=== PATIENT | male | born 1940 | race Caucasian/White ===

== ENCOUNTER 2023-12-28 10:36 | Inpatient (IN) | payer OTHER, MEDICARE ==
[~2023-12-28] VITALS: Ht 185.4 cm; Wt 77.2 kg
[2023-12-28] VITALS (17 sets, daily range): BP systolic 92–123; BP diastolic 47–73; PULSE 79–98; RESP 14–23; TEMP 96.3–97.3; O2SAT 98–100
[2023-12-28] MEDS: normal saline 1000ml 1,000 ML IVB ONE ×3 (11:07→11:08)
[2023-12-28 11:08] LABS: BASOPHILS % (AUTO) 0.2 % (0-1); EOSINOPHILS % (AUTO) 0 % (0-6); HEMATOCRIT 17.9 % (42.0-52.0); LYMPHOCYTES # (AUTO) 0.2 X10'3 (1.1-4.8); LYMPHOCYTES % (AUTO) 1.7 % (21-51); MEAN CORPUSCULAR HEMOGLOBIN 29.3 PG (27.0-31.0); MEAN CORPUSCULAR HGB CONC 31.1 g/dL (33.0-36.5); MEAN CORPUSCULAR VOLUME 94.1 FL (78-98); MEAN PLATELET VOLUME 6.5 FL (7.4-10.4); MONOCYTES # (AUTO) 0.6 X10'3 (0-0.9); MONOCYTES % (AUTO) 4.1 % (2-12); NEUTROPHILS # (AUTO) 13.8 X10'3 (1.8-7.7); PLATELET COUNT 339 X10'3 (140-440); RED CELL DISTRIBUTION WIDTH 16.9 % (11.5-14.5); WHITE BLOOD COUNT 14.7 X10'3 (4.5-11.0)
[2023-12-28] MEDS: LidoCAINE 2% Topical Jelly 11mL syringe (UROJET) TOP ONE ×2 (11:09→15:50)
[2023-12-28 11:10] LABS: HEMOGLOBIN 5.6 g/dl (14.0-17.9)
[2023-12-28 11:26] LABS: ALBUMIN 2.4 G/DL (3.4-5.0); ANION GAP 10 (8-16); BLOOD UREA NITROGEN 32 MG/DL (7-18); BUN/CREATININE RATIO 14.8 (10.0-20.0); CALCIUM 8.1 MG/DL (8.5-10.1); CHLORIDE 106 MMOL/L (99-107); CREATININE 2.16 MG/DL (0.60-1.10); GLUCOSE 103 MG/DL (70-104); LIPASE 23 U/L (16-77); MAGNESIUM 1.8 MG/DL (1.5-2.4); POTASSIUM 4.4 MMOL/L (3.5-5.1); SODIUM 138 MMOL/L (135-145); TOTAL CARBON DIOXIDE 22.3 MMOL/L (24-32); eCRCL 29 ML/MIN; eGFR 29 ML/MIN
[2023-12-28 11:32] LABS: ABG BASE EXCESS -7.5 mmol/L (-2.0-3.0); ABG HCO3 16.2 mmol/L (21.0-28.0); ABG OXYGEN SATURATION 99.7 % (94.0-98.0); ABG PCO2 (T) 23.4 mmHg (35.0-48.0); ABG PH (T) 7.452 (7.350-7.450); ABG PO2 (T) 365.5 mmHg (83.0-108.0); ALLEN'S TEST POSITIVE; FCOHb 0.9 % (0.5-1.5); FHHb 0.3 % (0.0-5.0); FLOW 15 L/min; FMetHb 0.1 % (0.0-1.5); FO2Hb 98.7 % (94.0-98.0); MODE MASK - NRB; PATIENT TEMPERATURE 35.6; TOTAL HEMOGLOBIN 5.3 G/dl (13.5-17.5)
[2023-12-28 11:43] LABS: BILIRUBIN,URINE SMALL (Neg); CLARITY,URINE CLOUDY (Clear); COLOR,URINE YELLOW (Yellow); GLUCOSE, URINE NEGATIVE (Neg); KETONES,URINE NEGATIVE (Neg); LEUKOCYTE ESTERASE ,URINE SMALL (Neg); NITRITES, URINE NEGATIVE (Neg); OCCULT BLOOD,URINE SMALL (Neg); PH,URINE 6.5 (4.8-8.0); PROTEIN,URINE 100 mg/dl (Neg); UROBILINOGEN,URINE 0.2 E.U/dL (0.2-1.0)
[2023-12-28 11:45] LABS: ANISOCYTOSIS 1+; PLATELET ESTIMATE NORMAL; TOTAL CELLS COUNTED 100
[2023-12-28 11:47] LABS: UA COLLECTION TYPE FOLEY CATH
[2023-12-28 11:49] LABS: POLYCHROMASIA FEW; SMUDGE CELLS FEW
[2023-12-28 11:50] LABS: SCHISTOCYTES FEW
[2023-12-28 11:51] LABS: BURR CELLS 1+; ELLIPTOCYTES 1+
[2023-12-28] MEDS: CefTRIAXone/D5W-Rocephin 1gm 50 ML IV ONE ×2 (11:56→16:05)
[2023-12-28 11:57] LABS: BACTERIA,URINE 2+ /HPF (Neg); MUCUS STRANDS NONE SEEN /LPF (Neg); RENAL CELLS, URINE FEW /HPF; SQUAMOUS EPITHELIAL CELL,UR NONE SEEN /LPF (FEW); WBC CLUMPS,URINE MODERATE /HPF (NEGATIVE); WBC,URINE TNTC /HPF (0-4)
[2023-12-28] MEDS: LIDOcaine 1% W/epiNEPHrine 1:100,000 20ml vial SQ ONE ×2 (11:57→12:29)
[2023-12-28 12:02] LABS: URINE AMPHETAMINE SCREEN NEGATIVE (Neg); URINE BARBITUATE SCREEN NEGATIVE (Neg); URINE BENZODIAZEPINES SCREEN POSITIVE (Neg); URINE CANNABINOID SCREEN NEGATIVE (Neg); URINE COCAINE SCREEN NEGATIVE (Neg); URINE METHADONE SCREEN NEGATIVE (Neg); URINE OPIATE SCREEN NEGATIVE (Neg); URINE PHENCYCLIDINE SCREEN NEGATIVE (Neg)
[2023-12-28] MEDS: NORepinephrine 8mg/ 250ml NS 250 ML IV ONE (12:48)
[2023-12-28] MEDS ORDERED: magnesium hydroxide 30ml (MOM) UD suspension PO PRN (15:50)
[2023-12-28] MEDS ORDERED: acetaminophen 325mg tablet PO PRN (15:50)
[2023-12-28] MEDS: ringers solution, lacted 1,000 ML IV ONE ×2 (15:54→16:00)
[2023-12-28] MEDS ORDERED: PANT40TA54 PO (15:58)
[2023-12-28] MEDS ORDERED: SPIR25TA5 PO (15:58)
[2023-12-28] MEDS ORDERED: SENN-367 PO (15:58)
[2023-12-28] MEDS ORDERED: ALPR0.5T8 PO (15:58)
[2023-12-28] MEDS ORDERED: DULO30CA52 PO (15:58)
[2023-12-28] MEDS: ringers solution, lacted 1,000 ML IV SCH (17:12)
[2023-12-28] MEDS: albumin (human) 25% 100ml IV 400 ML IV ONE (17:13)
[2023-12-28] MEDS: albumin (Human) 5% 250ml 250 ML IV SCH (17:22)
[2023-12-28] MEDS: diatr meglu/diatrizoate 30ml oral sol.-(3 dose) bottle PO ONE ×3 (17:35→21:21)
[2023-12-28 17:39] LABS: BASOPHILS % (AUTO) 0.2 % (0-1); EOSINOPHILS % (AUTO) 0 % (0-6); HEMATOCRIT 26.3 % (42.0-52.0); HEMOGLOBIN 8.3 g/dl (14.0-17.9); LYMPHOCYTES # (AUTO) 0.3 X10'3 (1.1-4.8); LYMPHOCYTES % (AUTO) 1.1 % (21-51); MEAN CORPUSCULAR HGB CONC 31.4 g/dL (33.0-36.5); MEAN CORPUSCULAR VOLUME 92.1 FL (78-98); MEAN PLATELET VOLUME 6.5 FL (7.4-10.4); MONOCYTES # (AUTO) 0.6 X10'3 (0-0.9); MONOCYTES % (AUTO) 2.4 % (2-12); NEUTROPHILS # (AUTO) 23.4 X10'3 (1.8-7.7); NEUTROPHILS % (AUTO) 96.3 % (42-75); PLATELET COUNT 379 X10'3 (140-440); RED BLOOD COUNT 2.85 X10'6 (4.70-6.10); RED CELL DISTRIBUTION WIDTH 16.9 % (11.5-14.5); WHITE BLOOD COUNT 24.3 X10'3 (4.5-11.0)
[2023-12-28] MEDS: acetaminophen 325mg tablet PO PRN (20:01)
[2023-12-28] MEDS: NORepinephrine 8mg/ 250ml NS 250 ML IV SCH (23:38)
[2023-12-29] VITALS (59 sets, daily range): BP systolic 94–124; BP diastolic 44–66; PULSE 78–97; RESP 9–24; O2SAT 92–99
[2023-12-29] MEDS: morphine 4 MG/ML inj SYRINge IV PRN (00:19)
[2023-12-29 01:52] LABS: HEMATOCRIT 25.1 % (42.0-52.0); MEAN CORPUSCULAR HEMOGLOBIN 29.3 PG (27.0-31.0); MEAN CORPUSCULAR HGB CONC 31.7 g/dL (33.0-36.5); MEAN CORPUSCULAR VOLUME 92.4 FL (78-98); MEAN PLATELET VOLUME 6.5 FL (7.4-10.4); PLATELET COUNT 336 X10'3 (140-440); RED BLOOD COUNT 2.72 X10'6 (4.70-6.10); RED CELL DISTRIBUTION WIDTH 17.3 % (11.5-14.5)
[2023-12-29 01:57] LABS: WHITE BLOOD COUNT 25.9 X10'3 (4.5-11.0)
[2023-12-29 02:01] LABS: ALANINE AMINOTRANSFERASE 97 U/L (12-78); ALBUMIN 2.6 G/DL (3.4-5.0); ALBUMIN/GLOBULIN RATIO 1.1 (1.1-1.5); ALKALINE PHOSPHATASE 86 IU/L (46-116); ANION GAP 6 (8-16); ASPARTATE AMINO TRANSFERASE 66 U/L (10-37); BILIRUBIN,TOTAL 0.5 MG/DL (0.1-1.0); BLOOD UREA NITROGEN 28 MG/DL (7-18); BUN/CREATININE RATIO 20.4 (10.0-20.0); CALCIUM 7.4 MG/DL (8.5-10.1); CHLORIDE 111 MMOL/L (99-107); CREATININE 1.37 MG/DL (0.60-1.10); GLUCOSE 88 MG/DL (70-104); MAGNESIUM 1.9 MG/DL (1.5-2.4); PHOSPHORUS 3.7 MG/DL (2.3-4.5); POTASSIUM 4.4 MMOL/L (3.5-5.1); SODIUM 141 MMOL/L (135-145); TOTAL CARBON DIOXIDE 23.9 MMOL/L (24-32); TOTAL PROTEIN 4.9 G/DL (6.4-8.2); eCRCL 46 ML/MIN; eGFR 50 ML/MIN
[2023-12-29] MEDS: CefTRIAXone/D5W-Rocephin 1gm 50 ML IV SCH (07:42)
[2023-12-29] MEDS: pantoprazole 40MG/NS 100ML BAG 100 ML IV SCH (07:45)
[2023-12-29 09:18] LABS: BASOPHILS % (AUTO) 0.1 % (0-1); EOSINOPHILS % (AUTO) 0.2 % (0-6); HEMATOCRIT 25.5 % (42.0-52.0); LYMPHOCYTES # (AUTO) 0.4 X10'3 (1.1-4.8); LYMPHOCYTES % (AUTO) 1.7 % (21-51); MEAN CORPUSCULAR HEMOGLOBIN 29.2 PG (27.0-31.0); MEAN CORPUSCULAR HGB CONC 31.6 g/dL (33.0-36.5); MEAN CORPUSCULAR VOLUME 92.6 FL (78-98); MEAN PLATELET VOLUME 6.5 FL (7.4-10.4); MONOCYTES # (AUTO) 0.7 X10'3 (0-0.9); MONOCYTES % (AUTO) 3.1 % (2-12); NEUTROPHILS # (AUTO) 21.4 X10'3 (1.8-7.7); NEUTROPHILS % (AUTO) 94.9 % (42-75); PLATELET COUNT 328 X10'3 (140-440); RED BLOOD COUNT 2.75 X10'6 (4.70-6.10); RED CELL DISTRIBUTION WIDTH 17.4 % (11.5-14.5); WHITE BLOOD COUNT 22.6 X10'3 (4.5-11.0)
[2023-12-29 09:36] LABS: ALBUMIN 2.7 G/DL (3.4-5.0); ANION GAP 6 (8-16); BLOOD UREA NITROGEN 26 MG/DL (7-18); BUN/CREATININE RATIO 22.6 (10.0-20.0); CALCIUM 7.6 MG/DL (8.5-10.1); CHLORIDE 112 MMOL/L (99-107); CREATININE 1.15 MG/DL (0.60-1.10); GLUCOSE 91 MG/DL (70-104); POTASSIUM 4.6 MMOL/L (3.5-5.1); SODIUM 139 MMOL/L (135-145); TOTAL CARBON DIOXIDE 21.4 MMOL/L (24-32); eCRCL 54 ML/MIN; eGFR 61 ML/MIN
[2023-12-29] MEDS: azithromycin/NS 500mg/250ml 250 ML IV SCH (09:47)
[2023-12-29] MEDS: ondansetron/PF 4mg/2ml inj IV PRN (10:08)
[2023-12-29 13:44] LABS: HEMOGLOBIN 7.8 g/dl (14.0-17.9); MEAN CORPUSCULAR HEMOGLOBIN 28.9 PG (27.0-31.0); MEAN CORPUSCULAR HGB CONC 31.2 g/dL (33.0-36.5); MEAN CORPUSCULAR VOLUME 92.7 FL (78-98); MEAN PLATELET VOLUME 6.6 FL (7.4-10.4); PLATELET COUNT 300 X10'3 (140-440); RED CELL DISTRIBUTION WIDTH 17.9 % (11.5-14.5); WHITE BLOOD COUNT 19.1 X10'3 (4.5-11.0)
[2023-12-29] MEDS: ringers solution, lacted 1,000 ML IV ONE (14:20)
[2023-12-29 18:07] LABS: HEMATOCRIT 23.8 % (42.0-52.0); HEMOGLOBIN 7.5 g/dl (14.0-17.9); MEAN CORPUSCULAR HEMOGLOBIN 29.2 PG (27.0-31.0); MEAN CORPUSCULAR HGB CONC 31.6 g/dL (33.0-36.5); MEAN CORPUSCULAR VOLUME 92.4 FL (78-98); MEAN PLATELET VOLUME 6.4 FL (7.4-10.4); PLATELET COUNT 268 X10'3 (140-440); RED BLOOD COUNT 2.57 X10'6 (4.70-6.10); RED CELL DISTRIBUTION WIDTH 17.4 % (11.5-14.5); WHITE BLOOD COUNT 17.3 X10'3 (4.5-11.0)
[2023-12-29] MEDS: dextrose 50%-water 50ml dispensing syringe IV PRN (21:00)
[2023-12-29] MEDS ORDERED: DEXTROSE 15 GM of carb/4 tabs (each vial/BOTTLE has 4 tablets) PO PRN ×2 (21:25)
[2023-12-29] MEDS ORDERED: glucagon, human recombinant 1mg kit SUBCUT PRN (21:25)
[2023-12-29] MEDS ORDERED: dextrose 50%-water 50ml dispensing syringe IV PRN (21:25)
[2023-12-29] MEDS: dextrose 50%-water 50ml dispensing syringe IV ONE (21:41)
[2023-12-29] MEDS: dextrose 5%-1/2 normal saline 1,000 ML IV SCH (21:41)
[2023-12-30] VITALS (24 sets, daily range): BP systolic 105–139; BP diastolic 52–79; PULSE 74–88; RESP 9–19; O2SAT 92–98
[2023-12-30 01:58] LABS: HEMATOCRIT 24.2 % (42.0-52.0); HEMOGLOBIN 7.6 g/dl (14.0-17.9); MEAN CORPUSCULAR HEMOGLOBIN 28.8 PG (27.0-31.0); MEAN CORPUSCULAR HGB CONC 31.6 g/dL (33.0-36.5); MEAN CORPUSCULAR VOLUME 91.3 FL (78-98); MEAN PLATELET VOLUME 6.7 FL (7.4-10.4); PLATELET COUNT 266 X10'3 (140-440); RED BLOOD COUNT 2.65 X10'6 (4.70-6.10); RED CELL DISTRIBUTION WIDTH 17.8 % (11.5-14.5); WHITE BLOOD COUNT 16.6 X10'3 (4.5-11.0)
[2023-12-30 02:06] LABS: APTT 40 SECONDS (22-32); INR 1.3 INR; PROTHROMBIN TIME 13.3 SECONDS (9.0-12.0)
[2023-12-30 02:08] LABS: ALANINE AMINOTRANSFERASE 52 U/L (12-78); ALBUMIN 2.7 G/DL (3.4-5.0); ALBUMIN/GLOBULIN RATIO 1.3 (1.1-1.5); ALKALINE PHOSPHATASE 67 IU/L (46-116); ANION GAP 5 (8-16); ASPARTATE AMINO TRANSFERASE 33 U/L (10-37); BILIRUBIN,TOTAL 0.4 MG/DL (0.1-1.0); BLOOD UREA NITROGEN 21 MG/DL (7-18); BUN/CREATININE RATIO 20.6 (10.0-20.0); CALCIUM 7.7 MG/DL (8.5-10.1); CHLORIDE 112 MMOL/L (99-107); CREATININE 1.02 MG/DL (0.60-1.10); GLUCOSE 92 MG/DL (70-104); POTASSIUM 4.3 MMOL/L (3.5-5.1); SODIUM 140 MMOL/L (135-145); TOTAL CARBON DIOXIDE 23.2 MMOL/L (24-32); TOTAL PROTEIN 4.8 G/DL (6.4-8.2); eCRCL 61 ML/MIN; eGFR 70 ML/MIN
[2023-12-30 02:10] LABS: TOTAL IRON BINDING CAPACITY 129 UG/DL (259-388)
[2023-12-30 02:13] LABS: % IRON SATURATION 3 % (11-46); IRON 4 UG/DL (53-167)
[2023-12-30] MEDS ORDERED: potassium Cl 40MEQ/270ML bag 270 ML IV PRN (07:40)
[2023-12-30] MEDS ORDERED: magnesium sulf-water 2g/50mL 50 ML IV PRN (07:40)
[2023-12-30] MEDS ORDERED: potassium Cl 20 mEq SR tablet PO PRN ×2 (07:40)
[2023-12-30] MEDS ORDERED: magnesium sulf-water 4G/100mL 100 ML IV PRN (07:40)
[2023-12-30] MEDS ORDERED: sodium phosphate inj. 30 MMOL in dextrose 5%-water 250 ML IV PRN (07:40)
[2023-12-30 07:50] LABS: HEMATOCRIT 25.4 % (42.0-52.0); MEAN CORPUSCULAR HEMOGLOBIN 29.4 PG (27.0-31.0); MEAN CORPUSCULAR HGB CONC 31.6 g/dL (33.0-36.5); MEAN CORPUSCULAR VOLUME 92.9 FL (78-98); MEAN PLATELET VOLUME 7.1 FL (7.4-10.4); PLATELET COUNT 276 X10'3 (140-440); RED BLOOD COUNT 2.73 X10'6 (4.70-6.10); RED CELL DISTRIBUTION WIDTH 17.9 % (11.5-14.5); WHITE BLOOD COUNT 17.8 X10'3 (4.5-11.0)
[2023-12-30] MEDS: K and/or MAG REPLACEMENT MC SCH (07:53)
[2023-12-30] MEDS: sodium phosphate inj. 15 MMOL in dextrose 5%-water 250 ML IV PRN (08:28)
[2023-12-30] MEDS: MULTIVIT-MIN/FERROUS GLUCONATE 9 MG/15 ML LIQUID PO SCH (11:29)
[2023-12-30 12:19] LABS: HEMATOCRIT 25.5 % (42.0-52.0); HEMOGLOBIN 8.2 g/dl (14.0-17.9); MEAN CORPUSCULAR HEMOGLOBIN 29.8 PG (27.0-31.0); MEAN CORPUSCULAR HGB CONC 32.2 g/dL (33.0-36.5); MEAN CORPUSCULAR VOLUME 92.6 FL (78-98); MEAN PLATELET VOLUME 6.9 FL (7.4-10.4); PLATELET COUNT 249 X10'3 (140-440); RED BLOOD COUNT 2.75 X10'6 (4.70-6.10); RED CELL DISTRIBUTION WIDTH 17.9 % (11.5-14.5); WHITE BLOOD COUNT 18.2 X10'3 (4.5-11.0)
[2023-12-30] MEDS: piperacillin/tazo 4.5gm/100ml 100 ML IV SCH (13:45)
[2023-12-30] MEDS: PEG 3350/Na sulf,bicarb,Cl/KCl oral sol 4 liter bottle PO ONE (15:39)
[2023-12-31] VITALS (20 sets, daily range): BP systolic 111–155; BP diastolic 48–86; PULSE 66–84; RESP 11–20; TEMP 97.6; O2SAT 94–99
[2023-12-31 00:42] LABS: HEMATOCRIT 23.4 % (42.0-52.0); HEMOGLOBIN 7.4 g/dl (14.0-17.9); MEAN CORPUSCULAR HEMOGLOBIN 28.8 PG (27.0-31.0); MEAN CORPUSCULAR HGB CONC 31.6 g/dL (33.0-36.5); MEAN PLATELET VOLUME 6.8 FL (7.4-10.4); PLATELET COUNT 215 X10'3 (140-440); RED BLOOD COUNT 2.57 X10'6 (4.70-6.10); WHITE BLOOD COUNT 12.8 X10'3 (4.5-11.0)
[2023-12-31 01:13] LABS: ALANINE AMINOTRANSFERASE 33 U/L (12-78); ALBUMIN 2.9 G/DL (3.4-5.0); ALBUMIN/GLOBULIN RATIO 1.6 (1.1-1.5); ALKALINE PHOSPHATASE 51 IU/L (46-116); ANION GAP 7 (8-16); ASPARTATE AMINO TRANSFERASE 12 U/L (10-37); BILIRUBIN,TOTAL 0.4 MG/DL (0.1-1.0); BLOOD UREA NITROGEN 13 MG/DL (7-18); BUN/CREATININE RATIO 15.5 (10.0-20.0); CALCIUM 7.6 MG/DL (8.5-10.1); CHLORIDE 109 MMOL/L (99-107); CREATININE 0.84 MG/DL (0.60-1.10); GLUCOSE 113 MG/DL (70-104); MAGNESIUM 1.7 MG/DL (1.5-2.4); PHOSPHORUS 2.1 MG/DL (2.3-4.5); POTASSIUM 3.7 MMOL/L (3.5-5.1); SODIUM 140 MMOL/L (135-145); TOTAL CARBON DIOXIDE 23.9 MMOL/L (24-32); TOTAL PROTEIN 4.7 G/DL (6.4-8.2); eCRCL 74 ML/MIN; eGFR 87 ML/MIN
[2023-12-31 05:37] LABS: HEMATOCRIT 23.1 % (42.0-52.0); HEMOGLOBIN 7.3 g/dl (14.0-17.9); MEAN CORPUSCULAR HGB CONC 31.8 g/dL (33.0-36.5); MEAN CORPUSCULAR VOLUME 91.2 FL (78-98); MEAN PLATELET VOLUME 6.9 FL (7.4-10.4); PLATELET COUNT 206 X10'3 (140-440); RED BLOOD COUNT 2.53 X10'6 (4.70-6.10); RED CELL DISTRIBUTION WIDTH 17.8 % (11.5-14.5)
[2023-12-31] MEDS ORDERED: iohexol 350MG/ML 100ml bottle IV ONE (14:29)
[2023-12-31] MEDS: PEG 3350/Na sulf,bicarb,Cl/KCl oral sol 4 liter bottle PO ONE (20:53)
[2024-01-01] VITALS (16 sets, daily range): BP systolic 115–148; BP diastolic 60–84; PULSE 71–87; RESP 15–25; TEMP 97.5–98.2; O2SAT 92–98
[2024-01-01 08:00] LABS: ALANINE AMINOTRANSFERASE 35 U/L (12-78); ALBUMIN 2.9 G/DL (3.4-5.0); ALBUMIN/GLOBULIN RATIO 1.3 (1.1-1.5); ALKALINE PHOSPHATASE 99 IU/L (46-116); ANION GAP 6 (8-16); ASPARTATE AMINO TRANSFERASE 16 U/L (10-37); BILIRUBIN,TOTAL 0.6 MG/DL (0.1-1.0); BLOOD UREA NITROGEN 7 MG/DL (7-18); CALCIUM 8.1 MG/DL (8.5-10.1); CHLORIDE 111 MMOL/L (99-107); CREATININE 0.87 MG/DL (0.60-1.10); GLUCOSE 96 MG/DL (70-104); MAGNESIUM 1.7 MG/DL (1.5-2.4); POTASSIUM 3.4 MMOL/L (3.5-5.1); SODIUM 143 MMOL/L (135-145); TOTAL CARBON DIOXIDE 26.1 MMOL/L (24-32); TOTAL PROTEIN 5.2 G/DL (6.4-8.2); eCRCL 71 ML/MIN; eGFR 84 ML/MIN
[2024-01-01] MEDS: furosemide 10 MG/1 ML 10ml inj IV ONE (12:55)
[2024-01-01] MEDS ORDERED: POTASSIUM BICARB 20meq eff tab 20 MEQ TABLET.EFF PO PRN (16:26)
[2024-01-01] MEDS ORDERED: MIDAZolam 1 MG/ML 5ML VIAL ONE (17:45)
[2024-01-01] MEDS ORDERED: fentaNYL/PF 50MCG/1 ML 2ML syringe ONE (17:45)
[2024-01-01] MEDS: lactose-reduced food (Ensure Enlive) - 237ml bottle PO SCH (18:52)
[2024-01-01] MEDS ORDERED: furosemide 40mg/4ml inj IV SCH (20:00)
[2024-01-01] MEDS: pantoprazole 40MG/NS 100ML BAG 100 ML IV SCH (21:08)
[2024-01-01] MEDS: Neutra Phos packet PO PRN (21:11)
[2024-01-01] MEDS: POTASSIUM BICARB 20meq eff tab 20 MEQ TABLET.EFF PO PRN (21:12)
[2024-01-02] VITALS (10 sets, daily range): BP systolic 119–150; BP diastolic 51–105; PULSE 61–84; RESP 12–21; TEMP 97.8–98.4; O2SAT 89–98
[2024-01-02] MEDS: furosemide 40mg/4ml inj IV SCH (08:00)
[2024-01-02 08:05] LABS: ALANINE AMINOTRANSFERASE 28 U/L (12-78); ALBUMIN 2.6 G/DL (3.4-5.0); ALBUMIN/GLOBULIN RATIO 1.2 (1.1-1.5); ALKALINE PHOSPHATASE 82 IU/L (46-116); ANION GAP 6 (8-16); ASPARTATE AMINO TRANSFERASE 13 U/L (10-37); BILIRUBIN,TOTAL 0.4 MG/DL (0.1-1.0); BLOOD UREA NITROGEN 7 MG/DL (7-18); BUN/CREATININE RATIO 8.3 (10.0-20.0); CALCIUM 8.1 MG/DL (8.5-10.1); CHLORIDE 110 MMOL/L (99-107); CREATININE 0.84 MG/DL (0.60-1.10); GLUCOSE 85 MG/DL (70-104); MAGNESIUM 1.7 MG/DL (1.5-2.4); POTASSIUM 3.4 MMOL/L (3.5-5.1); SODIUM 142 MMOL/L (135-145); TOTAL CARBON DIOXIDE 25.6 MMOL/L (24-32); TOTAL PROTEIN 4.7 G/DL (6.4-8.2); eCRCL 74 ML/MIN; eGFR 87 ML/MIN
[2024-01-02 08:31] LABS: BASOPHILS # (AUTO) 0.1 X10'3 (0-0.2); BASOPHILS % (AUTO) 0.8 % (0-1); EOSINOPHILS # (AUTO) 0.3 X10'3 (0-0.9); EOSINOPHILS % (AUTO) 4.5 % (0-6); HEMATOCRIT 26.9 % (42.0-52.0); HEMOGLOBIN 8.7 g/dl (14.0-17.9); LYMPHOCYTES # (AUTO) 0.5 X10'3 (1.1-4.8); LYMPHOCYTES % (AUTO) 7.5 % (21-51); MEAN CORPUSCULAR HGB CONC 32.5 g/dL (33.0-36.5); MEAN CORPUSCULAR VOLUME 89.2 FL (78-98); MEAN PLATELET VOLUME 7.3 FL (7.4-10.4); MONOCYTES # (AUTO) 0.5 X10'3 (0-0.9); MONOCYTES % (AUTO) 7.7 % (2-12); NEUTROPHILS # (AUTO) 5.5 X10'3 (1.8-7.7); NEUTROPHILS % (AUTO) 79.5 % (42-75); PLATELET COUNT 208 X10'3 (140-440); RED BLOOD COUNT 3.01 X10'6 (4.70-6.10); RED CELL DISTRIBUTION WIDTH 17.5 % (11.5-14.5); WHITE BLOOD COUNT 6.9 X10'3 (4.5-11.0)
[2024-01-02 08:57] LABS: PRO BRAIN NATRIURETIC PEPTIDE 7275 PG/ML (0-450)
[2024-01-02] MEDS ORDERED: potassium Cl 20 mEq SR tablet PO PRN (16:23)
[2024-01-02] MEDS: potassium Cl 20 mEq SR tablet PO PRN (16:49)
[2024-01-03] VITALS (7 sets, daily range): BP systolic 107–137; BP diastolic 63–78; PULSE 72–92; RESP 12–22; TEMP 97.6–99; O2SAT 95–99
[2024-01-03] MEDS: potassium Cl 40MEQ/1/2NS 520ml 520 ML IV PRN (02:58)
[2024-01-03 03:35] LABS: BASOPHILS # (AUTO) 0.1 X10'3 (0-0.2); BASOPHILS % (AUTO) 0.9 % (0-1); EOSINOPHILS # (AUTO) 0.3 X10'3 (0-0.9); EOSINOPHILS % (AUTO) 4.2 % (0-6); HEMATOCRIT 24.7 % (42.0-52.0); HEMOGLOBIN 8.1 g/dl (14.0-17.9); LYMPHOCYTES # (AUTO) 0.6 X10'3 (1.1-4.8); LYMPHOCYTES % (AUTO) 9.2 % (21-51); MEAN CORPUSCULAR HEMOGLOBIN 29.2 PG (27.0-31.0); MEAN CORPUSCULAR HGB CONC 32.9 g/dL (33.0-36.5); MEAN CORPUSCULAR VOLUME 88.8 FL (78-98); MEAN PLATELET VOLUME 7.6 FL (7.4-10.4); MONOCYTES # (AUTO) 0.5 X10'3 (0-0.9); MONOCYTES % (AUTO) 7.4 % (2-12); NEUTROPHILS # (AUTO) 5.1 X10'3 (1.8-7.7); NEUTROPHILS % (AUTO) 78.3 % (42-75); PLATELET COUNT 213 X10'3 (140-440); RED BLOOD COUNT 2.78 X10'6 (4.70-6.10); RED CELL DISTRIBUTION WIDTH 17.5 % (11.5-14.5); WHITE BLOOD COUNT 6.5 X10'3 (4.5-11.0)
[2024-01-03 03:39] LABS: ALANINE AMINOTRANSFERASE 23 U/L (12-78); ALBUMIN 2.6 G/DL (3.4-5.0); ALBUMIN/GLOBULIN RATIO 1.2 (1.1-1.5); ALKALINE PHOSPHATASE 71 IU/L (46-116); ANION GAP 4 (8-16); ASPARTATE AMINO TRANSFERASE 14 U/L (10-37); BILIRUBIN,TOTAL 0.4 MG/DL (0.1-1.0); BLOOD UREA NITROGEN 14 MG/DL (7-18); BUN/CREATININE RATIO 14.9 (10.0-20.0); CHLORIDE 107 MMOL/L (99-107); CREATININE 0.94 MG/DL (0.60-1.10); GLUCOSE 114 MG/DL (70-104); MAGNESIUM 1.5 MG/DL (1.5-2.4); PHOSPHORUS 3.1 MG/DL (2.3-4.5); POTASSIUM 4.3 MMOL/L (3.5-5.1); SODIUM 139 MMOL/L (135-145); TOTAL CARBON DIOXIDE 27.8 MMOL/L (24-32); TOTAL PROTEIN 4.7 G/DL (6.4-8.2); eCRCL 66 ML/MIN; eGFR 77 ML/MIN
[2024-01-04] VITALS (8 sets, daily range): BP systolic 96–128; BP diastolic 52–71; PULSE 71–88; RESP 14–22; TEMP 96.9–99.1; O2SAT 95–99
[2024-01-04] MEDS ORDERED: morphine 2 MG/ML inj. syringe IV PRN (00:50)
[2024-01-04] MEDS: morphine 2 MG/ML inj. syringe IV PRN (01:59)
[2024-01-04 08:52] LABS: ALANINE AMINOTRANSFERASE 25 U/L (12-78); ALBUMIN 3.5 G/DL (3.4-5.0); ALBUMIN/GLOBULIN RATIO 1.3 (1.1-1.5); ALKALINE PHOSPHATASE 80 IU/L (46-116); ANION GAP 7 (8-16); ASPARTATE AMINO TRANSFERASE 13 U/L (10-37); BILIRUBIN,TOTAL 0.4 MG/DL (0.1-1.0); BLOOD UREA NITROGEN 19 MG/DL (7-18); BUN/CREATININE RATIO 18.4 (10.0-20.0); CHLORIDE 102 MMOL/L (99-107); CREATININE 1.03 MG/DL (0.60-1.10); GLUCOSE 88 MG/DL (70-104); PHOSPHORUS 3.8 MG/DL (2.3-4.5); POTASSIUM 3.8 MMOL/L (3.5-5.1); SODIUM 140 MMOL/L (135-145); TOTAL CARBON DIOXIDE 30.6 MMOL/L (24-32); TOTAL PROTEIN 6.2 G/DL (6.4-8.2); eCRCL 60 ML/MIN; eGFR 69 ML/MIN
[2024-01-04] MEDS: furosemide 20MG tablet PO SCH (21:05)
[2024-01-04] MEDS: Melatonin 3mg tablet PO ONE (22:41)
[2024-01-05 02:00] VITALS: BP 130/65; PULSE 70; RESP 11; TEMP 97.4; O2SAT 97
[2024-01-05 06:00] VITALS: BP 112/68; PULSE 72; RESP 16; TEMP 97.8; O2SAT 98
[2024-01-05 07:13] LABS: BASOPHILS # (AUTO) 0.1 X10'3 (0-0.2); BASOPHILS % (AUTO) 0.8 % (0-1); EOSINOPHILS # (AUTO) 0.3 X10'3 (0-0.9); EOSINOPHILS % (AUTO) 4.8 % (0-6); HEMATOCRIT 26.5 % (42.0-52.0); HEMOGLOBIN 8.8 g/dl (14.0-17.9); LYMPHOCYTES # (AUTO) 0.6 X10'3 (1.1-4.8); MEAN CORPUSCULAR HEMOGLOBIN 29.3 PG (27.0-31.0); MEAN CORPUSCULAR HGB CONC 33.1 g/dL (33.0-36.5); MEAN CORPUSCULAR VOLUME 88.4 FL (78-98); MEAN PLATELET VOLUME 7.7 FL (7.4-10.4); MONOCYTES # (AUTO) 0.6 X10'3 (0-0.9); MONOCYTES % (AUTO) 8.3 % (2-12); NEUTROPHILS # (AUTO) 5.5 X10'3 (1.8-7.7); NEUTROPHILS % (AUTO) 77.1 % (42-75); PLATELET COUNT 262 X10'3 (140-440); RED CELL DISTRIBUTION WIDTH 17.5 % (11.5-14.5); WHITE BLOOD COUNT 7.1 X10'3 (4.5-11.0)
[2024-01-05 07:39] LABS: ALANINE AMINOTRANSFERASE 25 U/L (12-78); ALBUMIN 3.5 G/DL (3.4-5.0); ALBUMIN/GLOBULIN RATIO 1.3 (1.1-1.5); ALKALINE PHOSPHATASE 71 IU/L (46-116); ANION GAP 7 (8-16); ASPARTATE AMINO TRANSFERASE 18 U/L (10-37); BILIRUBIN,TOTAL 0.4 MG/DL (0.1-1.0); BLOOD UREA NITROGEN 27 MG/DL (7-18); BUN/CREATININE RATIO 24.3 (10.0-20.0); CALCIUM 8.8 MG/DL (8.5-10.1); CHLORIDE 100 MMOL/L (99-107); CREATININE 1.11 MG/DL (0.60-1.10); GLUCOSE 96 MG/DL (70-104); PHOSPHORUS 3.8 MG/DL (2.3-4.5); POTASSIUM 4.1 MMOL/L (3.5-5.1); SODIUM 138 MMOL/L (135-145); TOTAL CARBON DIOXIDE 30.8 MMOL/L (24-32); TOTAL PROTEIN 6.2 G/DL (6.4-8.2); eCRCL 56 ML/MIN; eGFR 63 ML/MIN
[2024-01-05 10:00] VITALS: BP 118/63; PULSE 86; RESP 16; O2SAT 98
[2024-01-05] MEDS ORDERED: ciprofloxacin 250mg tablet PO ONE (10:20)
[2024-01-05] MEDS: ciprofloxacin 250mg tablet PO SCH (10:24)
[2024-01-05] MEDS ORDERED: piperacillin/tazo 3.375gm/50ml 50 ML IV SCH (16:00)
[2024-01-06] MEDS ORDERED: furosemide 20MG tablet PO SCH (08:00)
== END 2024-01-05 14:59 | DRG 871 ==
LOC: ER 10:38 → ED HOLD 16:00 → CICU 2S 16:14 → PCU 3S 12-31 19:50
PROVIDERS: ADMIT Internal Medicine Critical Care Medicine; ATTEND Internal Medicine Critical Care Medicine
PROC: 30233N1 Transfusion of Nonautologous Red Blood Cells into Peripheral Vein, Percutaneous Approach (ICD-10-PCS; principal; 2023-12-28)
PROC: B52 Imaging, Veins, Computerized Tomography (CT Scan) (ICD-10-PCS; 2023-12-31)
PROC: B52 Imaging, Veins, Computerized Tomography (CT Scan) (ICD-10-PCS; 2023-12-31)
PROC: B52 Imaging, Veins, Computerized Tomography (CT Scan) (ICD-10-PCS; 2023-12-31)
PROC: BW21ZZZ Computerized Tomography (CT Scan) of Abdomen and Pelvis (ICD-10-PCS; 2023-12-31)
PROC: 0DJD8ZZ Inspection of Lower Intestinal Tract, Via Natural or Artificial Opening Endoscopic (ICD-10-PCS; 2024-01-01)
PROC: 0DJ08ZZ Inspection of Upper Intestinal Tract, Via Natural or Artificial Opening Endoscopic (ICD-10-PCS; 2024-01-01)
PROC: 02HV33Z Insertion of Infusion Device into Superior Vena Cava, Percutaneous Approach (ICD-10-PCS; 2024-01-02)
PROC: B548ZZA Ultrasonography of Superior Vena Cava, Guidance (ICD-10-PCS; 2024-01-02)
DX: A41.59 Other Gram-negative sepsis (principal); N17.0 Acute kidney failure with tubular necrosis; R65.21 Severe sepsis with septic shock; E87.20 Acidosis, unspecified; N39.0 Urinary tract infection, site not specified; E46 Unspecified protein-calorie malnutrition; R57.9 Shock, unspecified; G93.49 Other encephalopathy; D64.9 Anemia, unspecified; K57.30 Diverticulosis of large intestine without perforation or abscess without bleeding; K25.9 Gastric ulcer, unspecified as acute or chronic, without hemorrhage or perforation; D50.9 Iron deficiency anemia, unspecified; E83.51 Hypocalcemia; E88.09 Other disorders of plasma-protein metabolism, not elsewhere classified; E86.1 Hypovolemia; F41.9 Anxiety disorder, unspecified; K59.00 Constipation, unspecified; Z86.73 Personal history of transient ischemic attack (TIA), and cerebral infarction without residual deficits; Z87.11 Personal history of peptic ulcer disease; Z88.1 Allergy status to other antibiotic agents; Z88.5 Allergy status to narcotic agent; Z88.8 Allergy status to other drugs, medicaments and biological substances; Z68.22 Body mass index [BMI] 22.0-22.9, adult; Z97.8 Presence of other specified devices
CPT/HCPCS: 36410; 36415; 36430; 36600; 43235; 45378; 71045; 74174; 74176; 76942; 80048; 80053; 80305; 81001; 82803; 82948; 83540; 83550; 83605; 83690; 83735; 83880; 84100; 84145; 84484; 85007; 85018; 85025; 85027; 85610; 85730; 86885; 86900; 86901; 86920; 87040; 87077; 87081; 87088; 87186; 92508; 92616; 93005; 94760; 96361; 96365; 96375; 97110; 97116; 97162; 97530; 99152; 99153; 99291; A4333; A4615; A4620; A6213; A6250; A6258; A6402; A6449; C1751; G0378; J0456; J0696; J1940; J2250; J2270; J2405; J2470; J2543; J3010; J3480; J3490; J7030; J7040; J7060; J7120; J7121; P9016; P9045; P9047; Q9963; Q9967